=== PATIENT | male | born 1980 | race African-American/Black ===

== ENCOUNTER 2019-09-11 13:03 | Emergency (ER) | payer OTHER ==
[~2019-09-11] VITALS: Ht 185.4 cm; Wt 75.0 kg
[2019-09-11 14:03] LABS: HEMATOCRIT. 44.3 % (42.0-52.0); HEMOGLOBIN. 15.1 g/dL (14.0-18.0); MEAN PLATELET VOLUME 7.5 fl (7.4-10.4); PLATELET 250 x1000/uL (130-400); RED BLOOD CELL COUNT 5.03 mill/uL (4.7-6.1); RED CELL DISTRIBUTION WIDTH 14.2 % (11.6-14.6)
[2019-09-11 14:10] LABS: CHLORIDE 102 mEq/L (98-107)
[2019-09-11 14:14] LABS: ETHANOL BLOOD < 10 mg/dL
[2019-09-11 14:18] LABS: *AMPHETAMINES SCREEN URINE NEGATIVE (NEGATIVE); *BARBITURATES SCREEN URINE NEGATIVE (NEGATIVE)
[2019-09-11 14:19] LABS: *BENZODIAZEPINES SCREEN URINE NEGATIVE (NEGATIVE); *COCAINE SCREEN URINE NEGATIVE (NEGATIVE); CANNABINOID URINE SCREEN PRESUMTIVE POSITIVE (NEGATIVE); METHADONE URINE SCREEN NEGATIVE (NEGATIVE); PHENCYCLIDINE URINE SCREEN NEGATIVE (NEGATIVE)
[2019-09-11 14:20] LABS: OPIATES URINE SCREEN NEGATIVE (NEGATIVE)
[2019-09-11] MEDS ORDERED: IBUPROFEN 600MG TABLET PO ONE (15:00)
[2019-09-11] MEDS ORDERED: POTASSIUM CHLORIDE 20MEQ TABLET SR PO ONE (15:00)
[2019-09-11 15:05] VITALS: BP 131/74
[2019-09-11 16:25] LABS: PLATELET ESTIMATE NORMAL
== END 2019-09-11 15:47 | disposition home or self-care (01) ==
LOC: ER 13:39
DX: R07.89 Other chest pain (principal); R53.1 Weakness; F12.10 Cannabis abuse, uncomplicated; F17.210 Nicotine dependence, cigarettes, uncomplicated; Z71.6 Tobacco abuse counseling
CPT/HCPCS: 36415; 71045; 80053; 80305; 80320; 83880; 84484; 85025; 93005; 99285; 99406; G0480